=== PATIENT | female | born 1970 | race Caucasian/White ===

== ENCOUNTER 2019-12-26 12:40 | Observation (INO) | payer OTHER, SELFPAY ==
[2019-12-26] VITALS (10 sets, daily range): BP systolic 123–141; BP diastolic 48–79; PULSE 73–100; RESP 14–22; TEMP 36.5–36.8; O2SAT 74–100; BMI 44.9
--- NOTE | ~2019-12-26 | XR_ITS ---
EXAMINATION: XR chest 2V EXAM DATE: 12/26/2019 13:30 INDICATION upper chest pain. Dizziness. TECHNIQUE: Frontal and lateral projections of the chest obtained and reviewed. Comparison is made to prior examination from 06/17/2017. FINDINGS: The lungs are clear. There are no pleural effusions. The cardiomediastinal silhouette is within normal limits. There is no pneumothorax suspected. The bones and soft tissues are unremarkab le. There are cholecystectomy clips. IMPRESSION: No acute cardiopulmonary findings. Reviewed, dictated and finalized at location [facility]
--- NOTE | 2019-12-26 12:41 | ECG_ITS ---
Measurements Intervals Myra Rate: 86 P: 33 MS: 172 QRS: -43 QRSD: 90 T: 5 QT: 344 QTc: 412 Interpretive Statements SINUS RHYTHM ATRIAL PREMATURE COMPLEX LEFT AXIS DEVIATION VOLTAGE CRITERIA FOR LVH POOR R WAVE PROGRESSION, ANTERIOR LEADS BORDERLINE T WAVE ABNORMALITY- INFERIOR LEADS BORDERLINE ECG Electronically Signed On 12-26-2019 12:49:56 DIRECTOR DIGITAL [employer]ATE[employer] by Nathan Cali D.O.
[2019-12-26 12:58] LABS: Basophils Absolute Auto 0.2 K/mm3 (0.0-0.1); Basophils Percent Auto 1.6 % (0.2-1.2); Eosinophils Absolute Auto 0.2 K/mm3 (0-0.3); Eosinophils Percent Auto 1.6 % (0-4.4); Hematocrit 43.3 % (37.0-47.0); Immature Granulocyte Absolute 0.05 K/mm3 (0.00-0.031); Immature Granulocyte Percent A 0.5 % (0-0.5); Lymphocytes Absolute Auto 2.56 K/mm3 (0.9-3.2); Lymphocytes Percent Auto 25.1 % (18.3-44.2); Mean Corpuscular HGB Conc 32.3 g/dl (32-36); Mean Corpuscular Hemoglobin 30.8 pg (26-34); Mean Corpuscular Volume 95.2 fl (80-100); Mean Platelet Volume 9.6 fl (7.4-10.4); Monocytes Absolute Auto 0.6 K/mm3 (0.1-0.6); Monocytes Percent Auto 5.7 % (2.6-8.5); Neutrophils Absolute Auto 6.7 K/mm3 (1.3-6.7); Neutrophils Percent Auto 65.5 % (45.5-73.1); Platelet Count Result 395 k/mm3 (150-375); Red Blood Count 4.55 M/mm3 (4.2-5.4); Red Cell Distribution Width 12.4 % (11.5-14.5); White Blood Count 10.2 K/mm3 (4.5-10.0)
[2019-12-26 13:07] LABS: INR 0.9; Prothrombin Time 12.1 Seconds (11.1-14.7)
[2019-12-26 13:08] LABS: Partial Thromboplastin Time 26.6 SECONDS (22.3-36.8)
[2019-12-26 13:10] LABS: Blood Urea Nitrogen 17 mg/dL (7-17); Calcium 9.7 mg/dL (8.4-10.2); Carbon Dioxide 26 mmol/L (22-30); Chloride 102 mmol/L (98-107); Estimated CRCL calculation 87 ml/min; Estimated Glomerular Filt Rate > 60; Glucose 124 mg/dL (65-105); Potassium 4.3 mmol/L (3.4-5.0); Sodium 139 mmol/L (137-145)
[2019-12-26 13:22] LABS: Troponin I < 0.012 ng/mL (0.000-0.034)
[2019-12-26] MEDS: ASPIRIN 81 MG CHEWABLE TABLET 324 MG PO (15:13)
--- NOTE | 2019-12-26 15:14 | ED.CHESTPAIN ---
HPI - Chest Pain General Chief Complaint: Chest Pain <Huber Ball MD - Last Filed: 12/26/19 15:44> Stated Complaint: CP <Huber Ball MD - Last Filed: 12/26/19 15:44> Time Seen by Provider: 12/26/19 14:44 <Huber Ball MD - Last Filed: 12/26/19 15:44> Source: patient and RN notes reviewed <Huber Ball MD - Last Filed: 12/26/19 15:44> Mode of arrival: ambulatory <Huber Ball MD - Last Filed: 12/26/19 15:44> Limitations: no limitations <Huber Ball MD - Last Filed: 12/26/19 15:44> History of Present Illness HPI narrative: A 49 y/o female presents to the ED via EMS with intermittent, aching, CP for the past 3 weeks. 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 Segovia cardiology and Dr Mar at [facility] supposed to see Thursday got dizzy and nauseated today while at work so called EMS to come here nothing makes it better or worse no fevers, chills, cough, vomiting, diarrhea, ABD pain, MD 2017 <Huber Ball MD - Last Filed: 12/26/19 15:44> MD complaint: chest pain <Huber Ball MD - Last Filed: 12/26/19 15:44> Pertinent past history: prior MD <Huber Ball MD - Last Filed: 12/26/19 15:44> Related Data Home Medications: Home Medications Medication Instructions Recorded Confirmed bupropion HCl 150 mg tablet,12 hr 150 mg PO BID 10/07/19 sustained-release diltiazem HCl 60 mg 60 mg PO Q12H 10/07/19 capsule,extended release 12 hr metoprolol tartrate 25 mg tablet 25 mg PO DAILY 10/07/19 indomethacin 75 mg PO DAILY 12/26/19 <Huber Ball MD - Last Filed: 12/26/19 15:44> Allergies/Adverse Reactions: Allergies Allergy/AdvReac Type Severity Reaction Status Date / Time mepivacaine Allergy Severe Dyspnea / Verified 12/26/19 15:26 SOB latex Allergy Mild Rash Verified 12/26/19 15:26 Penicillins Allergy Mild Rash Verified 12/26/19 15:26 epinephrine Allergy Unknown Headache Verified 12/26/19 15:26 levonordefrin Allergy Unknown Dyspnea / Verified 12/26/19 15:26 SOB <Huber Ball MD - Last Filed: 12/26/19 15:44> [facility] Social History Social History: Social History Smoking status: Never smoker Alcohol intake: current Gender identity (if verbalized by the patient): Female <Huber Ball MD - Last Filed: 12/26/19 15:44> Course Vital Signs Vital signs: Vital Signs Temperature 97.7 F 12/26/19 12:48 Pulse Rate 81 12/26/19 12:48 Respiratory Rate 18 12/26/19 12:48 Blood Pressure 141/74 H 12/26/19 12:48 Pulse Oximetry 100 12/26/19 12:48 Temperature 98 F 12/26/19 15:14 Pulse Rate 75 12/26/19 15:25 Respiratory Rate 16 12/26/19 15:14 Blood Pressure 134/68 12/26/19 15:14 Pulse Oximetry 100 12/26/19 15:14 <Huber Ball MD - Last Filed: 12/26/19 15:44> Vital Signs Temperature 97.7 F 12/26/19 12:48 Pulse Rate 81 12/26/19 12:48 Respiratory Rate 18 12/26/19 12:48 Blood Pressure 141/74 H 12/26/19 12:48 Pulse Oximetry 100 12/26/19 12:48 Temperature 98 F 12/26/19 15:14 Pulse Rate 75 12/26/19 15:25 Respiratory Rate 16 12/26/19 15:14 Blood Pressure 134/68 12/26/19 15:14 Pulse Oximetry 100 12/26/19 15:14 <Payton Huerta PA-C - Last Filed: 12/26/19 16:25> MDM - Chest Pain Lab Data Result diagrams: : 12/26/19 12:52 12/26/19 12:52 <Huber Ball MD - Last Filed: 12/26/19 15:44> Labs: Lab Results 12/26/19 12/26/19 12/26/19 Range/Units 12:52 12:52 12:52 WBC 10.2 H (4.5-10.0) K/mm3 RBC 4.55 (4.2-5.4) M/mm3 Hgb 14.0 (12.0-15.0) g/dL Hct 43.3 (37.0-47.0) % MCV 95.2 (80-100) fl MCH 30.8 (26-34) pg MCHC 32.3 (32-
[2019-12-26 15:31] LABS: D Dimer 0.47 ug/mL (<0.48)
--- NOTE | 2019-12-26 16:26 | ED.CHESTPAIN ---
HPI - Chest Pain General Chief Complaint: Chest Pain Stated Complaint: CP Time Seen by Provider: 12/26/19 14:44 History of Present Illness HPI narrative: A 49 y/o female presents to the ED with intermittent CP for the past 3 weeks. She states that she has been under more stress lately and that she had a MSTEMI in [address] Segovia cathed her it was normal. She reports that today she was at work when she developed the pain again but also began to experience dizziness, so she decided to come to the ED to be evaluated. 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 She also notes that taking Aspirin alleviates her pain but denies anything aggravating it. She also denies any sweats, fevers, chills, SOB, N/V/D, ABD pain, and any other medical complaints at this time. MD complaint: chest pain Pertinent past history: prior DE Onset (ago): week(s) (3) Timing of current episode: episodic Relieving factors: other (Aspirin) Exacerbating factors: nothing Context: other (increased stress) Associated symptoms: other (dizziness) Treatment prior to arrival: aspirin Related Data Home Medications Medication Instructions Recorded Confirmed bupropion HCl 150 mg tablet,12 hr 150 mg PO BID 10/07/19 sustained-release diltiazem HCl 60 mg 60 mg PO Q12H 10/07/19 capsule,extended release 12 hr metoprolol tartrate 25 mg tablet 25 mg PO DAILY 10/07/19 indomethacin 75 mg PO DAILY 12/26/19 Allergies Allergy/AdvReac Type Severity Reaction Status Date / Time mepivacaine Allergy Severe Dyspnea / Verified 12/26/19 15:26 SOB latex Allergy Mild Rash Verified 12/26/19 15:26 Penicillins Allergy Mild Rash Verified 12/26/19 15:26 epinephrine Allergy Unknown Headache Verified 12/26/19 15:26 levonordefrin Allergy Unknown Dyspnea / Verified 12/26/19 15:26 SOB Review of Systems Review of Systems: All systems reviewed & are unremarkable except as noted in HPI and below Constitutional: Constitutional: Denies chills, Denies fatigue, Denies fever(s), Denies headache(s) and Denies night sweats Eyes: Eyes: Denies change in vision, Denies loss of vision and Denies other visual disturbances ENT: Denies headache(s), Denies hoarseness, Denies epistaxis, Denies nasal congestion and Denies sore throat Cardiovascular: Cardiovascular: Reports chest pain, Denies leg edema, Denies palpitations and Denies dyspnea Respiratory: Respiratory: Denies cough, Denies dyspnea and Denies wheezing Gastrointestinal: Gastrointestinal: Denies abdominal pain, Denies diarrhea, Denies nausea and Denies vomiting Genitourinary: Genitourinary: Denies hematuria, Denies urinary frequency and Denies dysuria Musculoskeletal: Musculoskeletal: Denies abnormal gait, Denies deformity, Denies joint swelling, Denies muscle weakness and Denies numbness Integumentary/Breasts: Skin/Breast: Denies rash, Denies unusual bruising and Denies wounds Neurologic: Denies abnormal gait, Reports dizziness, Denies headache(s), Denies focal weakness, Denies loss of vision and Denies numbness Psychiatric: Psychiatric: Reports no additional psychiatric complaints Endocrine: Endocrine: Denies fatigue and Denies palpitations Hematologic/Lymphatic: Hematologic/Lymphatic: Denies easy bleeding and Denies easy bruising Allergic/Immunologic: Allergic/Immunologic: Denies wheezing PMFSH Past Medical History Medical History (Updated 12/26/19 @ 17:31 by Huber Ball MD) Anemia Anxiety Arthritis Bipolar disorder Depression Hx: UTI (urinary tract infection) Hyperlipidemia Hypertension MRSA infection Status post I and D of chest wall abscess in 2009. Non-ST elevation [place] (NSTEMI) May 2017, possibly secondary to coronary spasm. Cardiac catheterization showed normal coronary arteries. Obstructive sleep apnea Premenstrual dysphoric syndrome Primary osteoarthritis of both knees Shingles Sleep apnea Surgical History Surgical History (Updated 12/26/19 @
--- NOTE | 2019-12-26 16:26 | PM.IMHP ---
H&P: HPI History of Present Illness Chief complaint: Chest pain. Narrative: Brittani Mosley is a 49 year old female [facility] Social History Social History Smoking status: Never smoker Alcohol intake: current Gender identity (if verbalized by the patient): Female Meds Home Medications and Allergies Home Medications Medication Instructions Recorded Confirmed Type bupropion HCl 150 mg tablet,12 hr 150 mg PO BID 10/07/19 History sustained-release diltiazem HCl 60 mg 60 mg PO Q12H 10/07/19 History capsule,extended release 12 hr metoprolol tartrate 25 mg tablet 25 mg PO DAILY 10/07/19 History alprazolam 0.5 mg tablet 0.5 mg PO TID #60 tablet 10/10/19 Rx atorvastatin 40 mg tablet 40 mg PO DAILY #90 tablet 12/26/19 Rx indomethacin 75 mg PO DAILY 12/26/19 History Allergies Allergy/AdvReac Type Severity Reaction Status Date / Time mepivacaine Allergy Severe Dyspnea / Verified 12/26/19 15:26 SOB latex Allergy Mild Rash Verified 12/26/19 15:26 Penicillins Allergy Mild Rash Verified 12/26/19 15:26 epinephrine Allergy Unknown Headache Verified 12/26/19 15:26 levonordefrin Allergy Unknown Dyspnea / Verified 12/26/19 15:26 SOB Vital Signs Vital Signs - 24 hr 12/26/19 12:48 12/26/19 15:14 12/26/19 15:25 Temperature 97.7 F 98 F Pulse Rate 81 75 Respiratory Rate 18 16 Blood Pressure 141/74 H 134/68 Pulse Oximetry 100 100 H&P: Results Labs Labs: Short CBC 12/26/19 Range/Units 12:52 WBC 10.2 H (4.5-10.0) K/mm3 Hgb 14.0 (12.0-15.0) g/dL Hct 43.3 (37.0-47.0) % Plt Count 395 H (150-375) k/mm3 BMP 12/26/19 12:52 Sodium 139 Potassium 4.3 Chloride 102 Carbon Dioxide 26 BUN 17 Creatinine 0.90 Glucose 124 H Calcium 9.7 Cardiac Enzymes 12/26/19 Range/Units 12:52 Troponin I < 0.012 (0.000-0.034) ng/mL
--- NOTE | 2019-12-26 16:31 | PM.IMHP ---
H&P: HPI History of Present Illness Chief complaint: Chest pain. Narrative: Brittani Mosley is a 49 year old female with history of NSTEMI with clear coronary arteries on cardiac catheterization 06/18/2017, sleep apnea, GERD, and hypertension who presented to the emergency department earlier today for evaluation of chest pain. About 3 weeks ago while shopping at the [employer] she developed midsternal chest aching/heaviness. It seemed to resolve within minutes but has been occurring intermittently since that time, and has been constant for 1 weeks time. She will also occasionally have shortness of breath, nausea, dizziness, and warm spells. The symptoms are similar to when she had a non STEMI in the past. Four baby aspirin in the emergency department did help somewhat, but the discomfort has returned. She does mention high levels of stress and does suffer from anxiety as well. She does suffer from GERD, but states that this discomfort is different than that, however on occasion she will have some discomfort in the epigastrium. She takes indomethacin daily for her knee pain. She has not noticed melena or hematochezia. 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 She does not think she has strained the muscle, however. She denies palpitations and pleuritic pain. No dysphagia. Review of Systems Review of Systems: All systems reviewed & are unremarkable except as noted in HPI and below PMFSH Past Medical History Medical History (Updated 12/26/19 @ 21:46 by Payton Hureta PA-C) Anemia Anxiety Arthritis Bipolar disorder Depression GERD (gastroesophageal reflux disease) Hx: UTI (urinary tract infection) Hyperlipidemia Hypertension MRSA infection Status post I and D of chest wall abscess in 2009. Non-ST elevation [place] (NSTEMI) May 2017, possibly secondary to coronary spasm. Cardiac catheterization showed normal coronary arteries. Obstructive sleep apnea on CPAP Premenstrual dysphoric syndrome Primary osteoarthritis of both knees Shingles Surgical History Surgical History (Updated 12/26/19 @ 16:50 by Corey Erwin) History of cholecystectomy (~2003) History of placement of ear tubes (~1974) Hx of cardiac cath Status post Achilles tendon repair Family History Family History Mother Family history of elevated blood lipids Father Family history of cardiovascular disease Other Diabetes mellitus Family history of arthritis Family history of congenital heart disease Family history of mental disorder Social History Social History (Updated 12/26/19 @ 21:40 by Payton Huerta PA-C) Social History: Patient is and lives in [place]. Her daughter is at home with her. She designates her mother as her surrogate decision maker and she wishes to be a full code. She is a lifelong nonsmoker and denies alcohol and drug abuse. Gender identity (if verbalized by the patient): Female Spiritual care concerns: No Agree to blood products: Yes Meds Home Medications and Allergies Home Medications Medication Instructions Recorded Confirmed Type bupropion HCl 150 mg tablet,12 hr 150 mg PO DAILY 10/07/19 12/26/19 History sustained-release diltiazem HCl 60 mg 60 mg PO Q12H 10/07/19 12/26/19 History capsule,extended release 12 hr metoprolol tartrate 25 mg tablet 12.5 mg PO BID 10/07/19 12/26/19 History alprazolam 0.5 mg tablet 0.5 mg PO TID #60 tablet 10/10/19 12/26/19 Rx aspirin 81 mg PO DAILY 12/26/19 12/26/19 History atorvastatin 40 mg tablet 40 mg PO DAILY #90 tablet 12/26/19 12/26/19 Rx indomethacin 75 mg PO DAILY 12/26/19 12/26/19 History norethindrone-ethin estradiol 1 tablet PO DAILY 12/26/19 12/26/19 History [Nortrel (28)] Allergies Allergy/AdvReac Type Severity Reaction Status Date / Time mepivacaine Allergy Severe Dyspnea / Verified 12/26/19 15:26 SOB latex Allergy Mild Rash Verified 12/26/19 15:2
[2019-12-26 16:32] LABS: Troponin I < 0.012 ng/mL (0.000-0.034)
--- NOTE | 2019-12-26 18:46 | ADMGEN ---
This patient, Brittani Mosley, was admitted to IMU Room 203-01. Patient/family oriented to hospital policies and general routines including ID bracelet, bed and alarms, visiting hours, pain management, procedures, bathroom and other care routines, personal items, smoking policy, room service/diet, and visiting hours. Valuables list has been completed. Information on how to activate the Rapid Response Team has been discussed. Patient/Family are encouraged to report perceived risks to care and to ask questions if they do not understand what they are told or what they should do.
[2019-12-26] MEDS: NITROGLYCERIN OINTMENT 1 INCH DOSE TRANSDERM (18:55)
[2019-12-26] MEDS: LACTATED RINGERS 1,000 ML 60 ML IV CONT (18:56)
[2019-12-26 19:28] LABS: Troponin I < 0.012 ng/mL (0.000-0.034)
[2019-12-26] MEDS: METOPROLOL TARTRATE 12.5 MG TABLET PO (23:34)
[2019-12-26] MEDS: ACETAMINOPHEN 325 MG TABLET 650 MG PO (23:37)
[2019-12-27] VITALS (8 sets, daily range): BP systolic 114–119; BP diastolic 45–55; PULSE 71–86; RESP 18–22; TEMP 36.1–36.9; O2SAT 98–100
[2019-12-27 05:20] LABS: Blood Urea Nitrogen 21 mg/dL (7-17); Calcium 8.7 mg/dL (8.4-10.2); Carbon Dioxide 27 mmol/L (22-30); Chloride 103 mmol/L (98-107); Estimated CRCL calculation 97 ml/min; Estimated Glomerular Filt Rate > 60; Glucose 90 mg/dL (65-105); Sodium 138 mmol/L (137-145)
[2019-12-27] MEDS: ACETAMINOPHEN 325 MG TABLET 650 MG PO (06:45)
--- NOTE | 2019-12-27 08:56 | PM.CNCAR ---
Assessment and Plan Assessment and plan (1) Chest pain: Code(s): R07.9 - Chest pain, unspecified Status: Acute Assessment and Plan: She has ruled out for [place] with negative troponin and EKG with no ischemic changes Her chest pain is reproducible and appears non cardiac in nature. She had relatively recent cath in May 2017 in the setting of NSTMI (trop of 2 following dental procedure) and had non obstructive disease onleft heart cathetarization Would continue ASA. She is stable for discharge from cardiac standpoint. Would prescribe SL nitro on discharge and see if that helps symptoms Patient is scheduled to see Dr Whaley tomorrow. Will arrange for outpatient stress testing possibly with nuc stress (2) Hypertension: Code(s): I10 - Essential (primary) hypertension Status: Acute Assessment and Plan: Well controlled (3) Morbidly obese: Code(s): E66.01 - Morbid (severe) obesity due to excess calories Status: Acute Assessment and Plan: weight loss advised (4) Obstructive sleep apnea on CPAP: Code(s): G47.33 - Obstructive sleep apnea (adult) (pediatric); Z99.89 - Dependence on other enabling machines and devices Status: Acute Assessment and Plan: on CPAP Q History of Present Illness History of Present Illness Consult date/time: 12/27/19 08:56 49 year-old woman with history of obesity, depression/anxiety, Hypertension and anemia presents with chest pain She reports symptoms for 3 weeks with on and off chest pain initially that has been constant for the last week. She admits to increased level of stress at home and work. She describe the pain as heaviness across the chest with no radiation. She was scheduled to see her cardiologsit Dr Whaley tomorrow however her symptoms worsened while at work yesterday and she decided to come to the hospital. She continues to have chest pain now. Worse with pressing on her chest wall. She has history of GERD and takes omeprazole on as needed basis. So far trop has been negative X3. EKG showed sinus rhythm with PACs and poor R wave progression. She was at [facility] in 03/04/19 because of Chest pain. *Had ECHO done in 03/04/19 showed mild LVH , LV systolic function at the lower limit of normal , EF 50% . Pt was admitted to [facility] 06/17/17 with NSTEMI (trop peaked at 2 back then) and chest pain possibly related to catecholamine medications (epinephrine with lidocaine) administered with dental procedure. Pt underwent LHC 05/2017 which revealed no significant obstructive disease. Never smoker Reason For Visit: Chest pain. Review of Systems Review of Systems: All systems reviewed & are unremarkable except as noted in HPI and below Constitutional: Constitutional: Denies fatigue and Denies headache(s) Eyes: Eyes: Denies blurry vision ENT: Reports Normal hearing present and Denies headache(s) Cardiovascular: Cardiovascular: Reports chest pain, Denies diaphoresis, Denies pedal edema, Denies leg edema, Denies lightheadedness, Denies palpitations and Denies dyspnea Respiratory: Respiratory: Denies cough and Denies dyspnea Gastrointestinal: Gastrointestinal: Denies abdominal pain and Reports nausea Musculoskeletal: Musculoskeletal: Denies back pain Neurologic: Reports Normal hearing present and Denies headache(s) Psychiatric: Psychiatric: Denies anxiety Endocrine: Endocrine: Denies fatigue and Denies palpitations [facility] Past Medical History Medical History (Updated 12/26/19 @ 21:46 by Payton Huerta PA-C) Anemia Anxiety Arthritis Bipolar disorder Depression GERD (gastroesophageal reflux disease) Hx: UTI (urinary tract infection) Hyperlipidemia Hypertension MRSA infection Status post I and D of chest wall abscess in 2009. Non-ST elevation [place] (NSTEMI) May 2017, possibly secondary to coronary spasm. Cardiac catheterization showed normal coronary arteries. Obstructive sleep apne
[2019-12-27] MEDS: METOPROLOL TARTRATE 12.5 MG TABLET PO (09:34)
[2019-12-27] MEDS: ASPIRIN 81 MG ENTERIC TABLET PO (09:34)
[2019-12-27] MEDS: PANTOPRAZOLE 40 MG TABLET PO (09:35)
--- NOTE | 2019-12-27 18:41 | PM.DS ---
DS: Diagnosis Admitting Diagnosis Admitting Diagnosis: Chest pain, unspecified Discharge Diagnosis (1) Chest pain: Code(s): R07.9 - Chest pain, unspecified Status: Acute Assessment and Plan: Atypical for cardiac pain, as it has been constant for 1 week without elevation in cardiac enzymes.. She had an unremarkable cardiac catheterization in summer 2016. Differential diagnosis includes GI etiology or even stress. Pain is reproducible on pressure on chest. Seen by Cardiology and agrees with negative history of catheterization the can be discharged stents troponins are negative and follow-up for outpatient stress testing again. Given a script for sublingual nitroglycerin to use p.r.n. (2) Hypertension: Code(s): I10 - Essential (primary) hypertension Status: Acute Assessment and Plan: Blood pressures reviewed and they are reasonably well controlled. Continue antihypertensives diltiazem and metoprolol (3) Anxiety: Code(s): F41.9 - Anxiety disorder, unspecified Status: Acute Assessment and Plan: Continue alprazolam as needed. (4) Obstructive sleep apnea on CPAP: Code(s): G47.33 - Obstructive sleep apnea (adult) (pediatric); Z99.89 - Dependence on other enabling machines and devices Status: Acute Assessment and Plan: CPAP available. DS: Summary Hospital Course Hospital Course: 49-year-old white female admitted with chest pressure sensation is somewhat constant and not positional or so she with eating. Negative catheterization some 3 years ago thought to possibly have arterial spasm at that time. Troponins are negative and will be discharged home to follow-up with cardiology within the next 24-48 hours for stress testing and given a script for sublingual nitroglycerin Time Spent with Patient Time attestation: Total time spent providing and/or coordinating discharge services: 35 minutes Exam Narrative: Exam Narrative: Condition on discharge: Blood pressure 120/60 pulse is 72 Lungs clear CV regular rate rhythm Abdomen soft nontender Extremities without edema good distal pulses DS: Data Data Completed and Pending Labs on day of discharge: Labs from last 24 hours 12/27/19 12/26/19 04:18 18:58 Sodium 138 Potassium 4.0 Chloride 103 Carbon Dioxide 27 BUN 21 H Creatinine 0.80 Estim Creat Clear Calc 97 Estimated GFR > 60 Glucose 90 Calcium 8.7 Troponin I < 0.012 Discharge Plan Discharge Attending physician on discharge: Rhys Jacobo Consulting providers: Almousalli,Phani Discharging Clinician: Rhys Jacobo Patient Disposition: Home, Self-Care Activity: as tolerated Diet: low sodium and low cholesterol Patient Instructions: Nitroglycerin, Rapid Release (By mouth) Stand Alone Forms: General Discharge Information Follow-up/Referrals: Phani Pimentel MD [Physician] - Keep Reg. Scheduled Appt. Discharge Medications: New nitroglycerin 0.4 mg tablet, sublingual 0.4 mg SUBLINGUAL Q5-15M PRN (Reason: chest pain) Qty: 25 RF: 0 Continued bupropion HCl 150 mg tablet sustained-release 12 hr 150 mg PO DAILY RF: 0 metoprolol tartrate 25 mg tablet 12.5 mg PO BID RF: 0 indomethacin 75 mg Capsule, Extended Release 75 mg PO DAILY RF: 0 aspirin 81 mg Tablet,Delayed Release (Dr/Ec) 81 mg PO DAILY RF: 0 Nortrel 1/35 (28) 1-35 mg-mcg tablet 1 tablet PO DAILY RF: 0 alprazolam 0.5 mg tablet 0.5 mg PO TID Qty: 60 RF: 3 atorvastatin 40 mg tablet 40 mg PO DAILY Qty: 90 RF: 1 No Action diltiazem HCl 60 mg capsule,extended release 12 hr 60 mg PO Q12H Qty: 180 RF: 0 Date of admission: 12/26/19 17:09 Primary Care Provider: Lizabeth Alejandro Admitting Provider: Fer Estrella Discharge Date/Time: 12/27/19 12:05 Attending physician on admission: Fer Estrella Condition: Stable Quality VTE Prophylax
== END 2019-12-27 12:05 | disposition home or self-care (01) ==
LOC: ANHED 17:31 → ANHIMU 12-27 09:30
PROVIDERS: Emergency Medicine; Physician Assistant; Admitting Provider Internal Medicine; Emergency Provider Emergency Medicine; PCP Family Medicine; Visit Provider Internal Medicine
DX: R07.9 Chest pain, unspecified (principal); I10 Essential (primary) hypertension; F32.9 Major depressive disorder, single episode, unspecified; F41.9 Anxiety disorder, unspecified; G47.33 Obstructive sleep apnea (adult) (pediatric); E66.01 Morbid (severe) obesity due to excess calories; Z68.41 Body mass index [BMI] 40.0-44.9, adult; E78.5 Hyperlipidemia, unspecified; K21.9 Gastro-esophageal reflux disease without esophagitis; I25.2 Old myocardial infarction; Z99.89 Dependence on other enabling machines and devices
CPT/HCPCS: 36415; 71046; 80048; 84484; 85025; 85380; 85610; 85730; 93005; 94660; 96360; 96361; 99285; A9270; G0378; J7120

== ENCOUNTER 2020-02-21 10:02 | Emergency (ER) | payer OTHER, SELFPAY ==
--- NOTE | ~2020-02-21 | XR_ITS ---
XR lumbar spine 2-3V 02/21/2020 10:36 Indication: Low back pain. No known trauma. Procedure: 3 views lumbar spine Comparison: No prior studies for comparison. Findings: There is disc narrowing at L1-2 and L3-4. There is degenerative retrolisthesis at L1-2. No acute fracture or traumatic malalignment. There is mild lower lumbar facet hypertrophy. Mild levocurv ature of the lower lumbar spine. There are cholecystectomy clips. Sacral foramen are symmetric. Impression: 1: No acute abnormality of the lumbar spine. 2: Mild lumbar spondylosis. Reviewed, dictated and finalized at location A. Impression: 1: No acute abnormality of the lumbar spine. 2: Mild lumbar spondylosis.
--- NOTE | 2020-02-21 10:08 | ED.GENADULT ---
HPI - General Adult General Chief complaint: Urogenital-Female Stated complaint: lower back pain Time Seen by Provider: 02/21/20 10:16 Source: patient Mode of arrival: ambulatory Limitations: no limitations History of Present Illness HPI narrative: 49-year-old female patient presents to the [facility] with complaints of low back pain for the past week. Patient states she has had issues with her low back before in the past and is supposed to be getting some x-rays done for the low back and possibly an MRI. Patient states she has not yet done any imaging. Patient states that her primary doctor does have her on Flexeril 3 times a day but she is only taking it twice a day. Patient states that she is currently working from home and that the muscle relaxer makes her tired so she is only taking it twice a day. Patient states she is also taking 650 mg of Tylenol for the pain. Patient states she has been using heating pads, lidocaine patches. Patient states that she is not losing any control of bowel or bladder but does have some numbness and tingling to her lower extremities at times. Denies any recent falls and states that she still is able to walk with a steady gait. Patient denies any pain with urination, urgency or frequency. Patient states she does have urine in the blood commonly which she does see urologist for at times. Related Data Home Medications Medication Instructions Recorded Confirmed bupropion HCl 150 mg tablet,12 hr 150 mg PO DAILY 10/07/19 02/21/20 sustained-release aspirin 81 mg PO DAILY 12/26/19 02/21/20 indomethacin 75 mg PO DAILY 12/26/19 02/21/20 norgestimate-ethinyl estradiol 1 tablet PO DAILY 02/16/20 02/21/20 Allergies Allergy/AdvReac Type Severity Reaction Status Date / Time mepivacaine Allergy Severe Dyspnea / Verified 12/26/19 15:26 SOB latex Allergy Mild Rash Verified 12/26/19 15:26 Penicillins Allergy Mild Rash Verified 12/26/19 15:26 epinephrine Allergy Unknown Headache Verified 12/26/19 15:26 levonordefrin Allergy Unknown Dyspnea / Verified 12/26/19 15:26 SOB Review of Systems Review of Systems: Narrative: CONSTITUTIONAL: Denies fever, chills, or sweats. EYES: Denies visual changes, redness, or discharge. ENT: Denies rhinorrhea, congestion, sore throat, or otalgia. CARDIOVASCULAR: Denies chest pain, palpitations, or edema. RESPIRATORY: Denies cough or dyspnea. GASTROINTESTINAL: Denies abdominal pain, nausea, vomiting, or diarrhea. GENITOURINARY: Denies dysuria or hematuria. SKIN: Denies rash or itching. MUSCULOSKELETAL: Positive back pain, denies joint pain, or myalgia. NEUROLOGIC: Denies headache, numbness, or weakness. PSYCHIATRIC: Denies anxiety or depression. [facility] Past Medical History Medical History Anemia Anxiety Arthritis Bipolar disorder Depression GERD (gastroesophageal reflux disease) Hx: UTI (urinary tract infection) Hyperlipidemia Hypertension MRSA infection Status post I and D of chest wall abscess in 2009. Non-ST elevation [place] (NSTEMI) May 2017, possibly secondary to coronary spasm. Cardiac catheterization showed normal coronary arteries. Obstructive sleep apnea on CPAP Premenstrual dysphoric syndrome Primary osteoarthritis of both knees Shingles Surgical History Surgical History History of cholecystectomy (~2003) History of placement of ear tubes (~1974) Hx of cardiac cath Status post Achilles tendon repair Family History Family History Mother Family history of elevated blood lipids Father Family history of cardiovascular disease Other Diabetes mellitus Family history of arthritis Family history of congenital heart disease Family history of mental disorder Social History Social History Social History: Patient is
[2020-02-21 10:17] VITALS: BP 145/79; PULSE 102; RESP 20; TEMP 37.7; O2SAT 99
== END 2020-02-21 10:53 | disposition home or self-care (01) ==
PROVIDERS: Emergency Provider Nurse Practitioner Family
DX: M54.42 Lumbago with sciatica, left side (principal); M54.41 Lumbago with sciatica, right side; F41.9 Anxiety disorder, unspecified; F32.9 Major depressive disorder, single episode, unspecified; K21.9 Gastro-esophageal reflux disease without esophagitis; E78.5 Hyperlipidemia, unspecified; I10 Essential (primary) hypertension; Z86.14 Personal history of Methicillin resistant Staphylococcus aureus infection; I25.2 Old myocardial infarction; G47.33 Obstructive sleep apnea (adult) (pediatric); M17.0 Bilateral primary osteoarthritis of knee
CPT/HCPCS: 72100; 81003; 99213; G0463